=== PATIENT | male | born 1980 | race Two or more races ===

== ENCOUNTER 2024-04-28 01:23 | Emergency (ER) | payer OTHER ==
[~2024-04-28] VITALS: Ht 167.6 cm; Wt 100.0 kg
[2024-04-28 01:36] VITALS: TEMP 97.6
[2024-04-28 02:08] VITALS: BP 136/84; PULSE 69; RESP 16
[2024-04-28] MEDS: PredniSONE 20 MG TABLET PO ONE (02:48)
[2024-04-28] MEDS: DiphenhydrAMINE HCL 50 MG/ML VIAL IM ONE (02:49)
[2024-04-28] MEDS ORDERED: PRED-554 PO (03:01)
[2024-04-28] MEDS ORDERED: DIPH50CA37 PO (03:01)
== END 2024-04-28 03:15 | disposition home or self-care (01) ==
LOC: EMS 01:37
DX: L50.9 Urticaria, unspecified (principal)
CPT/HCPCS: 99283; 96372; J1200; J7512